=== PATIENT | male | born 1995 | race Two or more races ===

== ENCOUNTER 2019-02-03 18:50 | Emergency (ER) | payer SELFPAY ==
[~2019-02-03] VITALS: Ht 175.3 cm; Wt 72.6 kg
--- NOTE | 2019-02-03 18:59 | NUR ---
PT WALKED INTO EMERGENCY ROOM FOR C/ BIBSELF C/O L SHOULDER PAIN S/P LIFTING BOXES X 8 HOURS AGO.
[2019-02-03] MEDS ORDERED: KETOROLAC TROMETHAMINE 15 MG/ML VIAL ONE (19:23)
[2019-02-03] MEDS ORDERED: KETOROLAC TROMETHAMINE INJ 30 MG/ML VIAL IV ONE (19:30)
[2019-02-03 20:56] VITALS: BP 122/78
== END 2019-02-03 20:57 | disposition home or self-care (01) ==
LOC: ER 18:52
DX: M25.512 Pain in left shoulder (principal); Z90.89 Acquired absence of other organs; X50.0XXA Overexertion from strenuous movement or load, initial encounter; Y93.89 Activity, other specified; Y92.89 Other specified places as the place of occurrence of the external cause; Y99.8 Other external cause status
CPT/HCPCS: 73030; 96372; 99283; A4606; J1885

== ENCOUNTER 2019-09-30 23:20 | Emergency (ER) | payer OTHER ==
[~2019-09-30] VITALS: Ht 175.3 cm; Wt 72.6 kg
--- NOTE | 2019-09-30 23:41 | NUR ---
PT C/O L SIDED RIB PAIN RADIATING TO BACK WORSE ON INSPIRATION. -SOB. PT FEELS PAIN UPON INHALATION. PT ON MONITOR AND PULSE OX. NO ACUTE DISTRESS NOTED.
--- NOTE | 2019-09-30 23:56 | NUR ---
TV HOST AT BEDSIDE FOR BLOOD COLLECTION.
[2019-09-30] MEDS ORDERED: KETOROLAC TROMETHAMINE 15 MG/ML VIAL ONE (23:58)
--- NOTE | 2019-09-30 23:59 | NUR ---
XRAY AT BEDSIDE
[2019-10-01 00:02] LABS: BASOPHILS # (AUTO) 0.1 /CMM (0.0-0.2); EOSINOPHILS % (AUTO) 0.7 % (0.0-6.0); HEMATOCRIT 50 % (39-51); HEMOGLOBIN 17.1 g/dL (13.5-17.5); LYMPHOCYTES # (AUTO) 1.4 /CMM (0.8-4.8); LYMPHOCYTES % (AUTO) 10.8 % (20.0-44.0); MEAN CORPUSCULAR HGB CONC 34 g/dl (31.0-36.0); MEAN CORPUSCULAR VOLUME 91 fL (80-96); MONOCYTES % (AUTO) 7.3 % (2.0-12.0); NEUTROPHILS # (AUTO) 10.7 /CMM (1.8-8.9); NEUTROPHILS % (AUTO) 80.2 % (43.0-81.0); PLATELET COUNT (AUTO) 173 /CMM (150-450); RED BLOOD CELL COUNT(AUTO) 5.55 MIL/uL (4.5-6.0); WHITE BLOOD COUNT (AUTO) 13.4 K/uL (4.3-11.0)
[2019-10-01 00:09] LABS: CALCIUM, SERUM 9.2 mg/dL (8.5-10.1); CREATININE 0.9 mg/dL (0.6-1.3); POTASSIUM 3.9 mmol/L (3.5-5.1)
[2019-10-01] MEDS ORDERED: IOHEXOL-350 100 ML VIAL IV ONE (00:14)
[2019-10-01] MEDS ORDERED: IV NS 0.9% 250 ML IV ONE (00:15)
--- NOTE | 2019-10-01 00:31 | NUR ---
PT BROUGHT TO CT.
--- NOTE | 2019-10-01 00:40 | NUR ---
PT BROUGHT BACK FROM CT
--- NOTE | 2019-10-01 01:08 | NUR ---
Patient is resting comfortably in bed. Easily aroused. VSS.
--- NOTE | 2019-10-01 01:28 | NUR ---
VERBAL ORDER "TORADOL INJ 15MG XNOW."
[2019-10-01] MEDS ORDERED: KETOROLAC TROMETHAMINE 15 MG/ML VIAL ONE (01:29)
[2019-10-01] MEDS ORDERED: KETOROLAC TROMETHAMINE INJ 30 MG/ML VIAL IV ONE ×2 (01:30)
[2019-10-01 01:37] VITALS: BP 128/76
--- NOTE | 2019-10-01 01:37 | NUR ---
Patient discharged to home in stable condition. Written and verbal after care instructions given. Patient verbalizes understanding of instruction. IV removed. Catheter intact and site benign. Pressure and 4x4 applied to site. No bleeding noted. PT ambulatory with a steady gait.
== END 2019-10-01 01:39 | disposition home or self-care (01) ==
LOC: ER 23:28
DX: R07.89 Other chest pain (principal); F17.200 Nicotine dependence, unspecified, uncomplicated; Z90.89 Acquired absence of other organs
CPT/HCPCS: 36415; 71046; 71275; 80048; 85025; 85378; 96374; 96376; 99284; 99406; J1885 ×2; J7050; Q9967

== ENCOUNTER 2025-02-01 11:14 | Emergency (ER) | payer MEDICAID, OTHER ==
[~2025-02-01] VITALS: Ht 172.7 cm; Wt 72.6 kg
[2025-02-01] MEDS ORDERED: ACETAMINOPHEN ES 500 MG TABLET ONE (11:30)
[2025-02-01] MEDS: IV NS 0.9% 1,000 ML BAG IV ONE (11:35)
[2025-02-01] MEDS: ACETAMINOPHEN ES 500 MG TABLET PO ONE (11:35)
[2025-02-01 11:37] LABS: BASOPHILS # (AUTO) 0.1 K/uL (0.0-0.2); BASOPHILS % (AUTO) 1.7 % (0.0-2.0); EOSINOPHILS % (AUTO) 0.8 % (0.0-6.0); HEMATOCRIT 54 % (39-51); HEMOGLOBIN 18.2 g/dL (13.5-17.5); LYMPHOCYTES # (AUTO) 2.1 K/uL (0.8-4.8); LYMPHOCYTES % (AUTO) 34.8 % (20.0-44.0); MEAN CORPUSCULAR HEMOGLOBIN 30 PG (26.0-33.0); MEAN CORPUSCULAR HGB CONC 34 g/dl (31.0-36.0); MEAN CORPUSCULAR VOLUME 88 fL (80-96); MONOCYTES # (AUTO) 0.6 K/uL (0.1-1.30); MONOCYTES % (AUTO) 10.1 % (2.0-12.0); NEUTROPHILS # (AUTO) 3.1 K/uL (1.8-8.9); NEUTROPHILS % (AUTO) 52.6 % (43.0-81.0); PLATELET COUNT (AUTO) 168 K/uL (150-450); RED BLOOD CELL COUNT(AUTO) 6.14 MIL/uL (4.5-6.0); RED CELL DISTRIBUTION WIDTH 13.6 % (11.5-15.0); WHITE BLOOD COUNT (AUTO) 5.9 K/uL (4.3-11.0)
[2025-02-01 11:43] LABS: CALCIUM, SERUM 9.6 mg/dL (8.5-10.1); POTASSIUM 3.6 mmol/L (3.5-5.1)
[2025-02-01 11:44] LABS: APPEARANCE,URINE CLEAR (CLEAR); BILIRUBIN,URINE NEGATIVE (NEGATIVE); BLOOD, URINE NEGATIVE Ery/uL (NEGATIVE); COLOR,URINE YELLOW (YELLOW); KETONES,URINE TRACE mg/dL (NEGATIVE); LEUKOCYTE ESTERASE ,URINE NEGATIVE (NEGATIVE); NITRITE, URINE NEGATIVE (NEGATIVE); PROTEIN,URINE NEGATIVE (NEGATIVE); UGLUCOSE NEGATIVE (NEGATIVE); UROBILINOGEN,URINE 0.2 EU/dL (0.2)
[2025-02-01 11:49] LABS: ALBUMIN 5.1 g/dL (3.4-5.0); BILIRUBIN,DIRECT 0.3 mg/dL (0.0-0.2); BILIRUBIN,TOTAL 1.4 mg/dL (0.2-1.0); TOTAL PROTEIN, SERUM 8.5 g/dL (6.4-8.2)
[2025-02-01 12:43] LABS: URINE AMORPHOUS PHOSPHATES Moderate /HPF (None Seen)
[2025-02-01 12:44] LABS: ADD URINE CULTURE NO; BACTERIA,URINE Rare /HPF (None Seen); RBC,URINE NONE SEEN /HPF (0-2); SQUAMOUS EPITHELIAL CELL,UR None Seen /HPF (None Seen); WBC,URINE NONE SEEN /HPF (0-3)
[2025-02-01] MEDS ORDERED: IBUP-1955 PO (12:47)
[2025-02-01 13:01] VITALS: BP 129/85; TEMP 97.9; O2SAT 99
== END 2025-02-01 13:01 | disposition home or self-care (01) ==
LOC: ER 11:35
DX: R10.31 Right lower quadrant pain (principal); K59.00 Constipation, unspecified; F17.200 Nicotine dependence, unspecified, uncomplicated; Z90.49 Acquired absence of other specified parts of digestive tract
CPT/HCPCS: 99284; 74176; 96360; 85025; 80048; 83690; 80076; 81001; 36415; J7030